=== PATIENT | male | born 1995 ===

== ENCOUNTER 2016-04-07 16:22 | Emergency (ER) | payer SELFPAY ==
--- NOTE | 2016-04-07 18:06 | RAD ---
Indication: Pain and swelling following injury greatest over the medial ankle. Comparison: None. Technique: AP and lateral views RIGHT lower leg. AP, lateral, and mortise views RIGHT ankle. REPORT AND IMPRESSION: Negative for fracture at the lower leg or ankle. Normal nutrient foramen noted at the medial margin of the mid diaphysis of the fibula without concern. Normal articular alignment. Suggestion of small talocrural joint effusion. Mild anterior lower leg and ankle soft tissue swelling.
--- NOTE | 2016-04-07 20:24 | UC ---
Lower Extremity/Ankle HPI - HPI Summary HPI Summary: 20 male presents complaining of foot pain after an injury while working at school today 04/07/16 around 2:30pm. Patient states he was moving heavy [employer] material and it was too heavy dropping and landing on his right foot, lower leg from the mid forrester down to his ankle. States he thinks his ankle was inverted. Patient admits to significant swelling, limited ROM, and has been unable to bear weight due to pain. He has not noticed any bruising or numbness/tingling. Patient is able to move foot. Point of maximal tenderness is the medial malleolous, heel and medial foot. He was given 800mg ibuprofen at the school medical office who instructed him to come to for x-rays. States it did give him some relief. Denies any other injuries to proximal leg/knee, did not hit his head, no LOC. - History of Current Complaint Chief Complaint: UCLowerExtremity Stated Complaint: FOOT INJURY Time Seen by Provider: 04/07/16 18:16 Hx Obtained From: Patient Onset/Duration: Sudden Onset Severity Initially: Moderate Severity Currently: Moderate Pain Intensity: 7 Pain Scale Used: 0-10 Numeric Aggravating Factor(s): Standing, Ambulation Alleviating Factor(s): Rest, Ice, OTC Meds Able to Bear Weight: No Related History: Other - while at school - Allergies/Home Medications Allergies/Adverse Reactions: Allergies Allergy/AdvReac Type Severity Reaction Status Date / Time No Known Allergies Allergy Verified 04/07/16 17:16 Home Medications: Home Medications Ibuprofen TAB* [Motrin TAB* 800 MG] 1 tab PO TID PRN 04/07/16 [History Confirmed 04/07/16] PMH/Surg Hx/FS Hx/Imm Hx Endocrine History Of: Denies: Diabetes, Thyroid Disease Cardiovascular History Of: Denies: Cardiac Disorders, Hypertension Respiratory History Of: Denies: COPD, Asthma GI/ History Of: Denies: Ulcer - Surgical History Surgical History: None - Family History Known Family History: Positive: None - Social History Alcohol Use: Weekly Substance Use Type: None Smoking Status (MU): Never Smoked Tobacco Review of Systems Constitutional: Negative Skin: Negative Eyes: Negative ENT: Negative Respiratory: Negative Cardiovascular: Negative Gastrointestinal: Negative Genitourinary: Negative Motor: Negative Neurovascular: Negative Musculoskeletal: Arthralgia, Decreased ROM - right ankle, medial heel/foot, Edema, Myalgia Neurological: Negative Psychological: Negative All Other Systems Reviewed And Are Negative: Yes Physical Exam Triage Information Reviewed: Yes Appearance: Well-Appearing, Well-Nourished, Pain Distress - mild with movements of right ankle, lower extremity Vital Signs: Initial Vital Signs Temp 98.8 F 04/07/16 17:17 Pulse 96 04/07/16 17:17 Resp 16 04/07/16 17:17 BP 120/75 04/07/16 17:17 Pulse Ox 100 04/07/16 17:17 Vital Signs Reviewed: Yes Eyes: Positive: Conjunctiva Clear ENT: Positive: Hearing grossly normal Neck: Positive: Supple, Nontender Respiratory: Positive: Chest non-tender, Lungs clear, Normal breath sounds, No respiratory distress Cardiovascular: Positive: RRR, No Murmur, Pulses Normal - 2+ pedal pulses, Brisk Capillary Refill - <2 seconds Abdominal Exam: Normal Musculoskeletal: Positive: Strength Limited @ - with flexion and extension of right ankle 3/5 due to pain., ROM Limited @ - with all movements, extremely limited with flexion of ankle and eversion of foot., Edema @ - significant edema medial malleolous, heel and medial right foot. some ecchymosis noted. skin and sensation intact. normal inspection and strength of toes., Other: - tenderness on palpation of medial right foot/ankle. no pain on palpation of lower leg tibia/fibula bony prominences. (-) fleming test. Neurological Exam: Normal Psychological Exam: Normal Skin Exam: Normal Diagnostics - Radiology right lower leg, ankle x-rays Xray Interpretation: Positive (See Comments) - Negative for fracture at the lower leg or ankle. Normal nutrient foramen noted at the medial margin of the mid diaphysis of the fibula without concern. Normal articular alignment. Suggestion of small talocrural joint effusion. Mild anterior lower leg and ankle soft tissue swelling. Radiology Interpretation Completed By: Radiologist Lower Extremity Course/Dx - Course Course Of Treatment: due to recent dose of ibuprofen another dose was not needed at this time. right lower leg and ankle x-rays obtained. positive for soft tissue swelling, joint effusion. negative for fractures at this time. patient will be instructed to take prescribed ibuprofen, ice, elevate and rest his ankle. non-weight bearing and to use pain as his guide. follow up with orthopedics this week for further evaluation if no improvement. crutches were sized correctly. splint was applied. aware of signs and symptoms to watch out for compartment syndrome. - Differential Dx/Diagnosis Differential Diagnosis/HQI/PQRI: Contusion, Fracture (Closed), Sprain, Strain Provider Diagnoses: contusion of lower ankle/foot, ankle sprain, joint effusion Discharge - Discharge Plan Condition: Stable Disposition: HOME Patient Education Materials: Foot Contusion (ED), Swollen Ankle Joint (ED), Ankle Sprain (ED) Referrals: Nyasia Batista MD [Medical Doctor] - Additional Instructions: Refrain from physical activity and weight bearing. Use pain as your guide. Take prescribed Ibuprofen as needed for pain and inflammation for the next few days. Take with food. Follow up with orthopedics and call them Saturday. Use crutches and splint as needed. If splint gets to tight and painful please remove it. Do not get it wet. Take it off throughout the day when resting. If symptoms worse or do not improve please return to . Ice and elevate the ankle as often as possible.
== END 2016-04-07 18:38 | disposition home or self-care (01) ==
LOC: UCEAST 16:22
DX: S90.31XA Contusion of right foot, initial encounter (principal); S90.01XA Contusion of right ankle, initial encounter; S93.401A Sprain of unspecified ligament of right ankle, initial encounter; W20.8XXA Other cause of strike by thrown, projected or falling object, initial encounter; Y93.89 Activity, other specified; Y92.219 Unspecified school as the place of occurrence of the external cause; Y99.0 Civilian activity done for income or pay
CPT/HCPCS: 99202; G0463